=== PATIENT | male | born 1940 | race Caucasian/White ===

== ENCOUNTER → 2021-10-28 07:10 | Outpatient (CLI) | payer MEDICARE, SELFPAY ==
--- NOTE | ~2021-10-28 | MR_ITS ---
EXAMINATION: MR lumbar spine wo con DATE: 10/28/2021 07:59 INDICATION: Lumbar radiculopathy TECHNIQUE: Magnetic resonance imaging (MRI) of the lumbar spine was performed without intravenous con trast. Sequences included sagittal T2-weighted FSE, sagittal T2-weighted FS FSE, sagittal T1-weighted FSE, and axial T2-weighted FSE. COMPARISON: None FINDINGS: 25 degrees lumbar levoscoliosis. 2 mm retrolisthesis L1 on L2, 3 mm retrolisthesis L2 on L3, 2 mm ant erolisthesis L4 on L5 and 3 mm retrolisthesis L5 on S1. Vertebral body heights are normal. There are few small Schmorl's nodes along several of the endplates in the lumbar and lower thoracic spine. Elda re right-sided predominant disc height loss at L4-L5, moderate right-sided predominant disc height lo ss at L2-L3 and L3-L4, moderate left-sided predominant disc height loss at L5-S1 and mild disc height loss at T11-T12 and L1-L2. There are fibrofatty and fibrovascular degenerative endplate changes in t he region of most severe disc height loss. The conus medullaris terminates at T12. There is normal si gnal in the caudal spinal cord. Paravertebral soft tissues are unremarkable. The following disc level s are specifically discussed: T12-L1: Disc is mildly bulging. There is moderate bilateral facet joint osteoarthritis. There is mild bilateral neural foraminal stenosis. There is mild central canal stenosis. L1-L2: Disc is bulging. There is moderate left and severe right facet joint osteoarthritis. There is moderate left and moderate to severe right neural foraminal stenosis. There is moderate to severe jerrica tral canal stenosis. L2-L3: Disc is bulging. There is mild left and moderate right facet joint osteoarthritis. There is mo derate bilateral, right greater than left neural foraminal stenosis. There is moderate central canal stenosis. L3-L4: Disc is bulging. There is moderate left and severe right facet joint osteoarthritis. There is moderate right and mild to moderate left neural foraminal stenosis. There is moderate central canal s tenosis. L4-L5: Disc is bulging with superimposed annular fissure. There is severe bilateral facet joint osteo arthritis. There is moderate bilateral neural foraminal stenosis. There is severe central canal steno sis. L5-S1: Disc is bulging with superimposed annular fissure. There is moderate right and severe left fac et joint osteoarthritis. There is moderate left and mild right neural foraminal stenosis. There is mi ld central canal stenosis. IMPRESSION: 1. 25 degrees lumbar levoscoliosis with severe spondylosis. Reviewed, dictated and finalized at location A.
== END ==
PROVIDERS: PCP Family Medicine; Visit Provider Physical Medicine & Rehabilitation
DX: M47.26 Other spondylosis with radiculopathy, lumbar region (principal)
CPT/HCPCS: 72148

== ENCOUNTER → 2021-12-03 11:04 | Outpatient (CLI) | payer MEDICARE, SELFPAY ==
--- NOTE | ~2021-12-03 | XR_ITS ---
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 TECHNIQUE: 1. Posteroanterior, oblique and lateral views of the left hand were obtained. 2. Posteroanterior, oblique and lateral views of the right hand were obtained. COMPARISON: None. FINDINGS: Normal alignment at the bilateral hands. No fractures. Polyarticular osteoarthritis at both hands ulysses racterized by nonuniform joint space narrowing and marginal osteophytes. This is severe at the bilate ral first carpal metacarpal joints as well as at the bilateral fifth proximal interphalangeal, bilate ral first interphalangeal and right second distal interphalangeal joints. Moderate osteoarthritis at the bilateral distal radioulnar, radiocarpal joints and at the remaining metacarpophalangeal and inte rphalangeal joints and mild at the bilateral metacarpal and triscaphe joints. Mild eburnation and mil d shortness nodules a few of the interphalangeal joints. IMPRESSION: 1. Relatively symmetric pattern of moderate to severe polyarticular osteoarthritis at the bilateral h ands and wrists including severe osteoarthritis at the first carpal metacarpal joints. Reviewed, dictated and finalized at location A. IMPRESSION: 1. Relatively symmetric pattern of moderate to severe polyarticular osteoarthri tis at the bilateral hands and wrists including severe osteoarthritis at the [facility] carpal metacarpal joints. IMPRESSION: 1. Relatively symmetric pattern of moderate to severe polyarticular osteoarthri tis at the bilateral hands and wrists including severe osteoarthritis at the rst carpal metacarpal joints.
== END ==
PROVIDERS: PCP Family Medicine; Visit Provider Physical Medicine & Rehabilitation
DX: M19.041 Primary osteoarthritis, right hand (principal); M19.042 Primary osteoarthritis, left hand; M19.031 Primary osteoarthritis, right wrist; M19.032 Primary osteoarthritis, left wrist
CPT/HCPCS: 73130

== ENCOUNTER 2023-07-21 07:21 | Outpatient (CLI) | payer MEDICARE, SELFPAY ==
--- NOTE | ~2023-07-21 | PE_ITS ---
EXAMINATION: PET_PETPSMAST_PT DATE: 07/21/2023 10:03 INDICATION: Prostate cancer TECHNIQUE: 4.592 mCi of Locametz Ga-68([id number]) was administered i.v. Low dose computed marya nn ography (CT) images were acquired from the base of the brain to the base of the brain to the proximal thighs for attenuation correction and anatomic localization. Positron emission tomography (PET) imag es were acquired in the same distribution beginning 91 minutes after injection. Images including fuse d PET/CT images were reconstructed in axial, coronal, and sagittal planes. Automated exposure control technique was employed. The dose-length product was 1296.69mGy-cm. COMPARISON: None FINDINGS: Head/neck: Typical pattern of symmetric physiologic increased activity in the lacrimal, parotid and submandibula r glands as well as along the mucosa of the nasal and oral cavities, the cydney-, naso- and hypopharynx, the glottis and esophagus. No pathologically enlarged cervical lymphadenopathy or suspicious foci of increased uptake in the visualized head or neck. Chest: Mildly decreased lung volumes with groundglass opacities and associated irregular septal line thicken ing in both lungs with peripheral and lower lung and right-sided predominance most suggestive of [employer] interstitial pneumonia in either nonspecific interstitial pneumonia (NSIP) or less likely usual i nterstitial pneumonia (UIP) pattern with differential including less likely pulmonary edema or pneumo wood. Small regions of mild bronchiectasis and/or honeycombing at the anterior aspect of the bilateral upper lobes. Calcified left lower lobe nodule consistent with old granulomatous disease. No pleural effusion or pneumothorax. Heart size is normal. Atherosclerotic coronary artery calcifications. No pe ricardial effusion. Thoracic aorta is normal in caliber. No pathologically enlarged or PSMA avid thor acic lymphadenopathy. Abdomen/pelvis/proximal thighs: Small sliding-type hiatal hernia. Physiologic renal accumulation and excretion of activity in the kid neys, bladder and along portions of ureters. Normal degree and slightly heterogenous pattern of incre ased uptake throughout the liver and spleen without radiologic correlate or dominant PSMA avid lesion . The gallbladder, pancreas and bilateral adrenal glands are normal. Moderate uptake scattered throug hout the bowels with typical duodenal and proximal jejunal predominance and without radiologic correl ate, also likely physiologic. There is mild colonic diverticulosis with a sigmoid predominance but wi thout adjacent inflammatory change to suggest diverticulitis. Prostatomegaly. There are couple small foci of increased PSMA activity in the prostate, one more central and cephalad with maximal SUV of 14 .1 and the second more posteriorly, inferiorly and laterally with maximal SUV of 11.6 which likely re presents the site of reported primary prostate cancer. No other abnormal foci of increased uptake or pathologically enlarged lymphadenopathy in the abdomen, pelvis or proximal thighs. Musculoskeletal: Streak artifact in the pelvis related to a right total hip arthroplasty. Lumbar levoscoliosis with se gaurav spondylosis. There are bridging osteophytes at multiple levels throughout the thoracic spine con sistent with diffuse idiopathic skeletal hyperostosis (DISH). No suspicious lytic, blastic or PSMA av id bone lesions to suggest osseous metastatic disease. IMPRESSION: 1. Couple foci of increased uptake in the enlarged prostate likely representing the sites of reported primary prostate cancer. No lesion suspicious for metastatic disease. Reviewed, dictated and finalized at location B.
== END 2023-07-21 07:22 | disposition home or self-care (01) ==
PROVIDERS: Visit Provider Urology
DX: C61 Malignant neoplasm of prostate (principal)
CPT/HCPCS: 78815; A9596